=== PATIENT | female | born 1985 | race Caucasian/White ===

== ENCOUNTER 2017-04-22 09:05 | Inpatient (IN) | payer OTHER ==
[~2017-04-22 09:05] MED LIST: ELECTROLYTE-148 SOLN 1,000 ML IV SCH
[2017-04-22 10:58] LABS: BASOPHIL 0.5 % (0-2.0); EOSINOPHIL 0.3 % (0-4.5); MCH 26.7 pg (25.7-33.7); MCHC 32.7 g/dl (32.0-36.0); MEAN CELL VOLUME 81.7 fl (80-96); MEAN PLT VOLUME 7.9 fl (7.5-11.1); NEUTROPHILS 80.5 % (42.8-82.8); PLATELET COUNT 287 K/MM3 (134-434); RDW 15.6 % (11.6-15.6); WHITE BLOOD COUNT 10.4 K/mm3 (4.0-10.0)
[2017-04-22] MEDS ORDERED: OXYTOCIN 15 UNITS/ LR 250 ML 250 ML IVPB SCH (11:15)
[2017-04-22 11:26] LABS: ANION GAP 9 (8-16); CO2 26 mmol/L (21-32); CREATININE 0.4 mg/dL (0.55-1.02); GLUCOSE,RANDOM 59 mg/dL (74-106)
[2017-04-22 11:29] LABS: INR 0.94 (0.82-1.09); PROTHROMBIN TIME (PATIENT) 10.3 SEC (9.98-11.88)
[2017-04-22] MEDS ORDERED: DEXTROSE 5%-LACTATED RINGERS 1,000 ML IV SCH (11:30)
--- NOTE | 2017-04-22 14:26 | HP ---
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 Weeks Gestation by Dates: 39.1 ...EDC by Dates: 04/28/17 ...EDC by Sono: 05/01/17 Additional OB History: 3 , no complications - Past Surgical History Hx Myomectomy: No Hx Transabdominal Cerclage: No - Smoking History Smoking history: Never smoked Have you smoked in the past 12 months: No Aproximately how many cigarettes per day: 0 - Alcohol/Substance Use Hx Alcohol Use: No History of Substance Use: reports: None - Social History ADL: Independent History of Recent Travel: No Home Medications - Allergies Allergies/Adverse Reactions: Allergies Allergy/AdvReac Type Severity Reaction Status Date / Time No Known Allergies Allergy Verified 04/22/17 11:46 - Home Medications Home Medications: Ambulatory Orders No Home Medications 0 dose .ROUTE UTDICT 10/23/12 Cephalexin [Keflex] 500 mg PO TID #30 capsule 07/24/15 Diazepam [Valium -] 5 mg PO BID #10 tablet 07/24/15 Meclizine HCl 25 mg PO TID #30 tab.chew 07/24/15 Review of Systems - Review of Systems Constitutional: reports: No Symptoms Eyes: reports: No Symptoms HENT: reports: No Symptoms Neck: reports: No Symptoms Cardiovascular: reports: No Symptoms Respiratory: reports: No Symptoms Gastrointestinal: reports: No Symptoms Genitourinary: reports: Vaginal Bleeding (bloody show) Breasts: reports: No Symptoms Reported Musculoskeletal: reports: No Symptoms Integumentary: reports: No Symptoms Neurological: reports: No Symptoms Endocrine: reports: No Symptoms Hematology/Lymphatic: reports: No Symptoms Psychiatric: reports: No Symptoms Physical Exam - Maternity Vital Signs: Vital Signs Temperature 98.8 F 07/17/17 09:05 Pulse Rate 91 H 04/22/17 13:00 Respiratory Rate 18 04/22/17 13:00 Blood Pressure 107/65 04/22/17 13:00 O2 Sat by Pulse Oximetry (%) Constitutional: Yes: Well Nourished, No Distress, Calm Eyes: Yes: WNL, Conjunctiva Clear, EOM Intact HENT: Yes: WNL, Atraumatic, Normocephalic Neck: Yes: WNL, Supple, Trachea Midline Cardiovascular: Yes: WNL, Regular Rate and Rhythm Breast(s): Yes: WNL - Abdominal Exam/OB Fundal Height: 40 Number of Fetuses: Single Presentation: Vertex Contractions: Yes Regularity: Irregular Intensity: Mod/Strong Monitor Mode: External Heart Rate Location: [facility] Category: I Accelerations: Uniform - Vaginal Exam/OB Vaginal Bleediing: No Speculum Exam: No Dilatation (cm): 3cm Effacement (%): 75 Amniotic Membrane Status: Bulging Presentation: Vertex/Position Station: -2 - Physical Exam Edema: LLE: Trace, RLE: Trace ...Motor Strength: WNL Psychiatric: Yes: WNL - Labs Lab Results: CBC, BMP 04/22/17 10:40 04/22/17 10:40 Hemorrhage Risk Assessment - Risk Factors Risk Score: 0 Risk Level: Low Risk Problem List - Problems (1) with 39 completed weeks gestation Code(s): Z3A.39 - 39 WEEKS GESTATION OF (2) Labor established Code(s): QUU3654 - Assessment/Plan plan admit, fhm, if irregular contraction pitocin stimulation discussed, pain management
[2017-04-22] MEDS ORDERED: BUTORPHANOL TARTRATE 1 MG/ML VIAL IVPUSH ONE (17:30)
[2017-04-22] MEDS ORDERED: PROMETHAZINE HCL 25 MG/1 ML VIAL IVPUSH ONE (17:45)
--- NOTE | 2017-04-22 17:46 | PN ---
Progress Note (short form) - Note Progress Note: cx 5 cm 80 vx -2 mr, fhr cat 1, regular contraction , recived stadol Problem List - Problems (1) with 39 completed weeks gestation Code(s): Z3A.39 - 39 WEEKS GESTATION OF (2) Labor established Code(s): LTM1411 -
[2017-04-22] MEDS ORDERED: TUBERCULIN PPD 5 TU/0.1ML SYRINGE (IN PATIENT USE ONLY) ID ONE (18:30)
[2017-04-22] MEDS ORDERED: FENTANYL/BUPIVACAINE/NS/PF - PCEA - 50 ML DISP.SYRIN EP SCH (19:00)
[2017-04-22] MEDS ORDERED: oxyCODONE HCL 5 MG TABLET PO PRN (21:22)
[2017-04-22] MEDS ORDERED: BISACODYL 10 MG SUPP.RECT RC PRN (21:22)
[2017-04-22] MEDS ORDERED: METHYLERGONOVINE MALEATE 0.2 MG/1 ML AMP IM PRN (21:22)
[2017-04-22] MEDS ORDERED: WITCH HAZEL 50% (TUCKS) 40 PAD/JAR PAD TP PRN (21:22)
[2017-04-22] MEDS ORDERED: BENZOCAINE 20% 57 GM BOTTLE TP PRN (21:22)
[2017-04-22] MEDS ORDERED: BENZOCAINE 28 GM HEMORRHOIDAL OINTMENT TP PRN (21:22)
[2017-04-22] MEDS ORDERED: D5W-LR W/ 20 UNITS OXYTOCIN 1,000 ML IV SCH (21:30)
[2017-04-22 21:35] LABS: ARTERIAL BLOOD GAS HCO3 23.9 meq/L (22-26); ARTERIAL BLOOD GAS pH 7.31 (7.35-7.45)
[2017-04-22 21:37] LABS: ARTERIAL BLOOD GAS PO2 24.2 mmHg (80-100)
[2017-04-22 21:39] LABS: VENOUS BLOOD GAS HCO3 24.8 meq/L (19-25); VENOUS PH 7.38 (7.32-7.42)
[2017-04-23] MEDS: IBUPROFEN 600 MG TABLET (FP) PO PRN ×3 (01:45→21:29)
[2017-04-23] MEDS: ACETAMINOPHEN 325 MG TABLET (FP) PO PRN ×3 (01:49→21:29)
[2017-04-23 08:28] LABS: BASOPHIL 0.4 % (0-2.0); EOSINOPHIL 0.4 % (0-4.5); MCH 26.6 pg (25.7-33.7); MCHC 32.3 g/dl (32.0-36.0); MEAN CELL VOLUME 82.4 fl (80-96); NEUTROPHILS 82.8 % (42.8-82.8); PLATELET COUNT 246 K/MM3 (134-434); RDW 15.6 % (11.6-15.6); WHITE BLOOD COUNT 12.6 K/mm3 (4.0-10.0)
--- NOTE | 2017-04-23 08:49 | PN ---
Post Progress Note - Subjective Subjective: 31 yo P4 s/p , feels well, no complains Post Day: 1 Type of Delivery: Vital Signs: Vital Signs Temperature 98.8 F 04/23/17 08:41 Pulse Rate 76 04/23/17 08:41 Respiratory Rate 20 04/23/17 08:41 Blood Pressure 96/56 04/23/17 08:41 O2 Sat by Pulse Oximetry (%) 100 04/22/17 20:55 Breast Exam: Yes: Soft Uterus: Yes: Fundus Firm Abdomen/GI: Yes: Abdomen soft Lochia: Yes: Rubra Lochia, amount: Small Extremities: Yes: Calves non-tender Perineum: Yes: Intact Activity: Ambulating - Labs Labs: CBC WBC 12.6 K/mm3 (4.0-10.0) H 04/23/17 07:45 RBC 3.50 M/mm3 (3.60-5.2) L 04/23/17 07:45 Hgb 9.3 GM/dL (10.7-15.3) L D 04/23/17 07:45 Hct 28.8 % (32.4-45.2) L 04/23/17 07:45 MCV 82.4 fl (80-96) 04/23/17 07:45 MCH 26.6 pg (25.7-33.7) 04/23/17 07:45 MCHC 32.3 g/dl (32.0-36.0) 04/23/17 07:45 RDW 15.6 % (11.6-15.6) 04/23/17 07:45 Plt Count 246 K/MM3 (134-434) 04/23/17 07:45 MPV 8.0 fl (7.5-11.1) 04/23/17 07:45 Neutrophils % 82.8 % (42.8-82.8) 04/23/17 07:45 Lymphocytes % 8.5 % (8-40) 04/23/17 07:45 Monocytes % 7.9 % (3.8-10.2) 04/23/17 07:45 Eosinophils % 0.4 % (0-4.5) 04/23/17 07:45 Basophils % 0.4 % (0-2.0) 04/23/17 07:45 Assessment/Plan 31 yo P4 s/p VSS, Afibrile H/H appropriate decrease Rh+ no need for RhoGam cont. routine care, plan d/c in am
[2017-04-23] MEDS: FERROUS SO4 325 MG TABLET (FP) PO SCH ×2 (08:54→16:35)
[2017-04-23] MEDS: PRENATAL VITAMINS W/ FOLIC ACID TABLET (FP) PO SCH (09:01)
[2017-04-23] MEDS ORDERED: SENNOSIDES/DOCUSATE COMBO (SENNA PLUS) TABLET (UD) PO PRN (22:00)
[2017-04-24] MEDS: FERROUS SO4 325 MG TABLET (FP) PO SCH (08:36)
[2017-04-24] MEDS: PRENATAL VITAMINS W/ FOLIC ACID TABLET (FP) PO SCH (09:14)
[2017-04-24 09:24] VITALS: BP 126/77; PULSE 73; TEMP 98.5
[2017-04-24] MEDS: IBUPROFEN 600 MG TABLET (FP) PO PRN (09:36)
[2017-04-24] MEDS: ACETAMINOPHEN 325 MG TABLET (FP) PO PRN (09:37)
[2017-04-24] MEDS ORDERED: DIPHTH,PERTUSS(ACELL),TET 0.5 ML DISP.SYRIN IM ONE ×2 (10:00→11:00)
--- NOTE | 2017-04-24 22:56 | DS ---
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..Post : Yes: Uterus firm, Uterus non-tender, Slight lochia rubra Breast(s): Yes: WNL Musculoskeletal: Yes: WNL Extremities: Yes: WNL Integumentary: Yes: WNL Neurological: Yes: WNL, Alert, Oriented ...Motor Strength: WNL Psychiatric: Yes: WNL, Alert, Oriented Labs: CBC, BMP 04/23/17 07:45 04/22/17 10:40 Delivery - Delivery Vaginal Delivery: Spontaneous (no complication) Type of Anesthesia: Epidural Episiotomy/Laceration: None EBL (cc): 300 Delivery, Single - Stages of Labor Date 1st Stage Initiatied: 04/22/17 Time 1st Stage Initiated: 04:00 Date 2nd Stage Initiated: 04/22/17 Time 2nd Stage Initiated: 20:45 Date of Delivery: 04/22/17 Time of Delivery: 21:07 Time Placenta Delivered: 21:10 Placenta: Yes: Spontaneous (no complication) - 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 Referrals: Lam Sotelo MD [Staff Physician] - Disposition: HOME
== END 2017-04-24 12:45 | disposition home or self-care (01) | DRG 560 ==
LOC: JLDR 09:05 → J3W 22:45
PROVIDERS: ADMIT Obstetrics & Gynecology; ATTEND Obstetrics & Gynecology
PROC: 10E0XZZ Delivery of Products of Conception, External Approach (ICD-10-PCS; principal; 2017-04-22)
DX: O80 Encounter for full-term uncomplicated delivery (principal); Z3A.39 39 weeks gestation of pregnancy; Z37.0 Single live birth
CPT/HCPCS: 36415; 36600; 59409; 80048; 82803; 85025; 85610; 85730; 86593; 86850; 86900; 86901; 90715

== ENCOUNTER 2018-03-28 07:23 | Day surgery (SDC) | payer OTHER ==
[2018-03-28] MEDS ORDERED: IRON SUCROSE INJECTION 200 MG in SODIUM CHLORIDE 100 ML IVPB ONE (10:00)
[2018-03-28 16:54] VITALS: TEMP 99
[2018-03-28 16:56] VITALS: BP 103/79; PULSE 78
== END 2018-03-28 12:05 | disposition home or self-care (01) ==
LOC: JONCNONCHE 07:23 → J7W 10:09 → JONCNONCHE 15:05
PROVIDERS: ATTEND Internal Medicine Hematology & Oncology
PROC: 3E033GC Introduction of Other Therapeutic Substance into Peripheral Vein, Percutaneous Approach (ICD-10-PCS; principal; 2018-03-28)
DX: D50.9 Iron deficiency anemia, unspecified (principal)
CPT/HCPCS: 96365; J1756

== ENCOUNTER 2019-08-26 09:35 | Day surgery (SDC) | payer OTHER ==
[2019-08-26] MEDS ORDERED: FERRIC CARBOXYMALTOSE 750 MG in SODIUM CHLORIDE 250 ML IVPB ONE (10:30)
[2019-08-26 11:35] VITALS: BP 109/62; PULSE 86; TEMP 98.5
== END 2019-08-26 11:32 | disposition home or self-care (01) ==
LOC: JINFUSION 09:35
PROVIDERS: ATTEND Family Medicine
PROC: 3E033GC Introduction of Other Therapeutic Substance into Peripheral Vein, Percutaneous Approach (ICD-10-PCS; principal; 2019-08-26)
DX: D50.9 Iron deficiency anemia, unspecified (principal)
CPT/HCPCS: 81025; 96365; 96366; J1439

== ENCOUNTER 2020-06-07 21:17 | Emergency (ER) | payer OTHER ==
[2020-06-07 21:31] VITALS: BP 103/73; PULSE 108; TEMP 97.7; BMI 23.1
[2020-06-07 21:50] LABS: EOS % 5.9 % (0-4.5); HEMATOCRIT 33.3 % (32.4-45.2); HEMOGLOBIN 11.2 GM/dL (10.7-15.3); LYMPH % 11.6 % (8-40); MCH 32.6 pg (25.7-33.7); MCHC 33.7 g/dl (32.0-36.0); MEAN CELL VOLUME 96.7 fl (80-96); MEAN PLT VOLUME 7.5 fl (7.5-11.1); MONO % 16.4 % (3.8-10.2); NEUT % 65.1 % (42.8-82.8); PLATELET COUNT 320 K/MM3 (134-434); RBC 3.44 M/mm3 (3.60-5.2); RDW 14.9 % (11.6-15.6)
--- NOTE | 2020-06-07 21:54 | PDOC ---
Documentation entered by Ángela Diana SCRIBE, acting as scribe for Amina Wall MD. Amina Wall MD: This documentation has been prepared by the Shelly chance Sydney, SCRIBE, under my direction and personally reviewed by me in its entirety. I confirm that the documentation accurately reflects all work, treatment, procedures, and medical decision making performed by me. History of Present Illness - General Chief Complaint: Respiratory Stated Complaint: COUGH Time Seen by Provider: 06/07/20 21:31 History Source: Patient Exam Limitations: No Limitations - History of Present Illness Initial Comments: 06/07/20 21:40 Patient is a 35 year old female with a significant past medical history of Hodgkins lymphoma (last treatment on Saturday, has 3 remaining) who presents to the ED with one week of unproductive cough. Patient also endorses throat discomfort. Patients is at the bedside and noted the patient's heart rate at home was 110. He also reported an upcoming vacation planned, prompting the patients arrival to the ED for further evaluation. Denies fever, chills, headache, shortness of breath, chest pain, nausea, vomiting, diarrhea, or urinary changes. Allergies: NKDA Past History - Medical History Allergies/Adverse Reactions: Allergies Allergy/AdvReac Type Severity Reaction Status Date / Time No Known Allergies Allergy Verified 06/07/20 21:31 Home Medications: Ambulatory Orders NK [No Known Home Medication] 01/22/20 Asthma: No Cancer: Yes (HODGKINS LYMPHOMA) Cardiac Disorders: No COPD: No Diabetes: No HTN: No Seizures: No Thyroid Disease: No - Surgical History Neurologic Surgery: Yes (SUBDURAL) - Reproductive History Is Patient Now?: No - Immunization History Td Vaccination: Yes Immunization Up to Date: Yes - Psycho-Social/Smoking History Smoking Status: No Smoking History: Never smoked Years of Tobacco Use: 0 Have you smoked in the past 12 months: No Number of Cigarettes Smoked Daily: 0 Cigars Per Day: 0 - Substance Abuse Hx (Audit-C & DAST Scrn) How often the patient has a drink containing alcohol: Never Score: In Men: 4 or > Positive; In Women: 3 or > Positive: 0 Screen Result (Pos requires Nsg. Audit-10AR): Negative In the last yr the pt used illegal drug/Rx for NonMed reason: No Score: Yes response is considered Positive: 0 Screen Result (Positive result requires Nsg. DAST-10): Negative Review of Systems - Review of Systems Able to Perform ROS?: Yes Comments:: 06/07/20 21:42 CONSTITUTIONAL: Absent: fever, no chills, no fatigue EYES: Absent: visual changes ENT: Absent: ear pain CARDIOVASCULAR: Absent: chest pain, no palpitations RESPIRATORY: +cough, throat discomfort Absent: no SOB GI: Absent: abdominal pain, no nausea, no vomiting, no constipation, no diarrhea GENITOURINARY: Absent: dysuria, no frequency, no hematuria MUSKULOSKELETAL: Absent: back pain, no arthralgia, no myalgia SKIN: Absent: rash NEURO: Absent: headache *Physical Exam - Vital Signs Last Vital Signs Temp Pulse Resp BP Pulse Ox 97.7 F 108 H 18 103/73 98 06/07/20 21:28 06/07/20 21:28 06/07/20 21:28 06/07/20 21:28 06/07/20 21:28 - Physical Exam 06/07/20 21:37 GENERAL: Well-appearing, well-nourished. No apparent distress. HEENT: Normocephalic, atraumatic. PERRL, EOM intact. CARDIOVASCULAR: Normal S1, S2. Regular rate and rhythm. PULMONARY: Clear to auscultation bilaterally. ABDOMEN: Soft, non-distended, non-tender. EXTREMITIES: Normal ROM in all four extremities. No gross deformities. SKIN: Warm, dry. No rash NEUROLOGICAL: No focal neurological deficits. ED Treatment Course - LABORATORY CBC & Chemistry Diagram: 06/07/20 21:43 06/07/20 21:43 Medical Decision Making - Medical Decision Making 06/08/20 00:19 she has not had any fever and she is not hypoxic ,her pulse ox is 100% on room air ct scan soft tissue neck: no masses,patent airway ct scan chest: interval improvement of anterior mediastinal soft tissue lesion -also there is nonspecific small right upper lobe and minimal to mild left upper lobe infiltrate Dr Avery,the pt's will follow her labs that are still pending -we spoke with her oven unloader, Dr Obrien and the pt was given antibiotics and she will follow with her specialists 06/08/20 00:25 Discharge - Discharge Information Problems reviewed: Yes Clinical Impression/Diagnosis: Cough, Hodgkin lymphoma Condition: Stable Disposition: HOME - Admission No - Follow up/Referral Referrals: Asa Luther MD [Primary Care Provider] - - Patient Discharge Instructions Patient Printed Discharge Instructions: DI for Cough -- Adult, DI for Hodgkin's Lymphoma Additional Instructions: please follow up with your doctors Print Language: [id number] - Post Discharge Activity
[2020-06-07 22:11] LABS: ALBUMIN 3.7 g/dl (3.4-5.0); BILIRUBIN,TOTAL 0.2 mg/dL (0.2-1); CALCIUM 9.4 mg/dL (8.5-10.1); CREATININE 0.5 mg/dL (0.55-1.3); POTASSIUM 3.6 mmol/L (3.5-5.1); TOT PROT 6.5 g/dl (6.4-8.2)
[2020-06-07] MEDS ORDERED: AZITHROMYCIN IVPB 500 MG/250 ML BAG IVPB ONE (22:33)
[2020-06-07] MEDS ORDERED: CEFTRIAXONE 2 GM in DEXTROSE 5%-WATER 100 ML IVPB ONE (22:33)
[2020-06-07] MEDS ORDERED: CEFTRIAXONE 2 GM/100 ML BAG IVPB ONE (22:34)
[2020-06-07] MEDS ORDERED: AZITHROMYCIN 250 MG TABLET ONE (22:39)
[2020-06-07] MEDS ORDERED: PANTOPRAZOLE 40 MG TABLET PO ONE (22:42)
[2020-06-07] MEDS ORDERED: AZITHROMYCIN 250 MG TABLET PO STA (22:44)
[2020-06-07 22:48] LABS: PH,URINE >= 9.0 (5.0-8.0); URINE APPEARANCE CLEAR; URINE BILIRUBIN NEGATIVE (NEGATIVE); URINE COLOR YELLOW; URINE GLUCOSE (UA) NEGATIVE (NEGATIVE); URINE KETONE NEGATIVE (NEGATIVE); URINE LEUK ESTERASE NEGATIVE (NEGATIVE); URINE NITRITE NEGATIVE (NEGATIVE); URINE PROTEIN TRACE (NEGATIVE)
[2020-06-07 23:59] LABS: PLATELET ESTIMATE NORMAL
[2020-06-08 02:32] LABS: IRON SERUM 29 ug/dL (50-175); TOTAL IRON BINDING CAPACITY 224 ug/dL (250-450)
[2020-06-08] MEDS ORDERED: AZITHROMYCIN 500 MG TABLET PO SCH (10:00)
== END 2020-06-07 23:01 | disposition home or self-care (01) ==
LOC: JER 21:17
DX: R05 Cough (principal); C81.90 Hodgkin lymphoma, unspecified, unspecified site
CPT/HCPCS: 36415; 70490-TC; 71250-TC; 80053; 81003; 82728; 83540; 83550; 83615; 84703; 85025; 85379; 85651; 86140; 87040; 87086; 99285-25; U0003

== ENCOUNTER 2020-10-27 10:55 | Emergency (ER) | payer BC ==
[2020-10-27 11:06] VITALS: BP 139/90; PULSE 88; TEMP 98.1; BMI 24.0
[2020-10-27] MEDS ORDERED: LORazepam 2 MG/ML SDV VIAL ONE (11:33)
[2020-10-27] MEDS ORDERED: LORazepam 2 MG/ML SDV VIAL IVPUSH ONE (11:33)
[2020-10-27 12:22] LABS: BASO % 0.8 % (0-2.0); EOS % 3.8 % (0-4.5); HEMATOCRIT 35.2 % (32.4-45.2); HEMOGLOBIN 11.6 GM/dL (10.7-15.3); LYMPH % 21.6 % (8-40); MCH 27.6 pg (25.7-33.7); MCHC 32.9 g/dl (32.0-36.0); MONO % 9.8 % (3.8-10.2); PLATELET COUNT 315 K/MM3 (134-434); RBC 4.19 M/mm3 (3.60-5.2); RDW 13.7 % (11.6-15.6)
[2020-10-27 12:26] LABS: INR 1.02 (0.83-1.09); PROTHROMBIN TIME (PATIENT) 12.3 SEC (9.7-13.0)
[2020-10-27 12:29] LABS: ACTIVATED PTT 33.1 SECONDS (25.2-36.5)
[2020-10-27 12:37] LABS: CHLORIDE 106 mmol/L (98-107); POTASSIUM 4.2 mmol/L (3.5-5.1); SODIUM 141 mmol/L (136-145)
[2020-10-27 12:41] LABS: CALCIUM 9.7 mg/dL (8.5-10.1)
[2020-10-27 12:42] LABS: ALBUMIN 3.8 g/dl (3.4-5.0); ANION GAP 7 MMOL/L (8-16); BLOOD UREA NITROGEN 12.4 mg/dL (7-18); CO2 29 mmol/L (21-32); GLUCOSE,RANDOM 95 mg/dL (74-106)
[2020-10-27 12:45] LABS: CREATININE 0.7 mg/dL (0.55-1.3); SGOT/AST 9 U/L (15-37); SGPT/ALT 15 U/L (13-61)
[2020-10-27 12:46] LABS: CHOLESTEROL 145 mg/dL (50-200)
[2020-10-27 12:47] LABS: BILIRUBIN,TOTAL 0.6 mg/dL (0.2-1); LDL CHOLESTEROL (ONLY SJRH) 74 mg/dL (5-100); TOT PROT 7.6 g/dl (6.4-8.2); TRIGLYCERIDES 44 mg/dL (0-150)
[2020-10-27 12:48] LABS: ALK PHOS 66 U/L (45-117)
[2020-10-27 12:50] LABS: HDL CHOLESTEROL 58 mg/dL (40-60)
== END 2020-10-27 13:15 | disposition home or self-care (01) ==
LOC: JER 10:55
DX: R20.2 Paresthesia of skin (principal)
CPT/HCPCS: 36415; 70551-TC; 80053; 80061; 82550; 83721; 84484; 85025; 85610; 85730; 93005; 93010; 93306-TC; 99285-25